=== PATIENT | female | born 1990 | race Two or more races ===

== ENCOUNTER 2017-06-18 04:00 | Inpatient (IN) | payer MEDICAID ==
[~2017-06-18] VITALS: Ht 154.9 cm; Wt 93.9 kg
[2017-06-18] VITALS (18 sets, daily range): BP systolic 101–136; BP diastolic 59–85
[2017-06-18 04:39] LABS: Basophils # (auto) 0.1 uL; Basophils % (auto) 0.5 % (0.0-2.0); Eosinophils # (auto) 0 uL; Eosinophils % (auto) 0.3 % (0.0-7.0); Hematocrit 35.6 % (36.0-46.0); Hemoglobin 11.7 g/dL (12.2-16.2); Lymphocytes # (auto) 2.4 uL; Lymphocytes % (auto) 20.4 % (10.0-50.0); Mean Corpuscular Hemoglobin 27.9 pg (28.0-32.0); Mean Corpuscular Hgb Conc. 32.9 g/dL (32.0-36.0); Mean Corpuscular Volume 84.9 fL (80.0-100.0); Monocytes # (auto) 0.6 uL; Monocytes % (auto) 5.3 % (0.0-12.0); Neutrophils # (auto) 8.5 uL; Neutrophils % (auto) 73.5 % (37.0-80.0); Nucleated Red Blood Cells % 0.1 %; Platelet Count (auto) 185 10^3/uL (140-450); Red Cell Distribution Width 15.2 % (11.8-14.3); White Blood Cell 11.6 10^3/uL (4.4-10.8)
[2017-06-18] MEDS: LACTATED RINGER'S 1,000 ML IV SCH ×4 (04:45→17:00)
[2017-06-18 04:55] LABS: INR 0.88 (0.9-1.15); Partial Thromboplastin Time 24.3 sec (22.64-33.71); Prothrombin Time 9.6 sec (9.37-12.3)
[2017-06-18 05:01] LABS: Alcohol, Urine < 3.0 mg/dL (0-5); Amphetamine Screen, Urine NEGATIVE (NEGATIVE); Barbiturate Scree,Urine NEGATIVE (NEGATIVE); Benzodiazephine Screen, Urine NEGATIVE (NEGATIVE); Cannabinoid Screen, Urine NEGATIVE (NEGATIVE); Cocaine Screen, Urine NEGATIVE (NEGATIVE); Opiate Scree,Urine NEGATIVE (NEGATIVE); Phencyclidine Screen, Urine NEGATIVE (NEGATIVE)
[2017-06-18 05:03] LABS: Urine Bacteria FEW /hpf (None Seen); Urine Blood Negative /uL (Negative); Urine Mucus FEW (None Seen); Urine Specific Gravity 1.027 (1.001-1.035); Urine WBC 3 /hpf (0 - 5)
[2017-06-18 05:04] LABS: Albumin 2.6 g/dL (3.4-5.0); BUN/Creatinine Ratio 22.9; Bilirubin, Total 0.4 mg/dL (0.2-1.0); Calcium 8.3 mg/dL (8.5-10.1); Potassium 3.6 mmol/L (3.5-5.1); Total Protein 6.9 g/dL (6.4-8.2)
[2017-06-18] MEDS ORDERED: MORPHINE SULF(PF) 0.5MG/ML 10ML VIAL ONE (06:59)
[2017-06-18] MEDS ORDERED: ePHEDrine SULFATE 50 MG/ML AMP ONE (07:00)
[2017-06-18] MEDS ORDERED: ceFAZolin 1GM VL ONE (07:04)
[2017-06-18] MEDS ORDERED: OXYTOCIN 10 UNIT/ML 10ML VIAL ONE (07:04)
[2017-06-18] MEDS ORDERED: PREN-96 PO (07:17)
[2017-06-18] MEDS ORDERED: METOCLOPRAMIDE HCL 5MG/ml INJ 2ml VIAL ONE (07:48)
[2017-06-18] MEDS ORDERED: LACT. RINGERS/OXYTOCIN 20UNITS 1,000 ML IV SCH (07:59)
[2017-06-18] MEDS ORDERED: HYDROmorphone HCL 2 MG/ML VL IV PRN (08:00)
[2017-06-18] MEDS ORDERED: diphenhdrAMINE HCL 50 MG/1 ML VL IV PRN (08:00)
[2017-06-18] MEDS ORDERED: ONDANSETRON HCL 4 MG/2 ML VIAL IV ONE (08:00)
[2017-06-18] MEDS ORDERED: KETOROLAC TROMETH 30 MG/ML 1ML VIAL IV PRN (08:00)
[2017-06-18] MEDS ORDERED: MORPHINE SULF INJ 2 MG/ML SYRINGE 1ML IV PRN (08:00)
[2017-06-18] MEDS ORDERED: ceFAZolin 1GM/50ML 50 ML IV SCH ×2 (08:00→10:00)
[2017-06-18] MEDS ORDERED: METOCLOPRAMIDE HCL 5MG/ml INJ 2ml VIAL IV ONE (08:00)
[2017-06-18] MEDS ORDERED: NALOXONE HCL 0.4 MG/ML VIAL IV PRN ×2 (08:00)
[2017-06-18] MEDS ORDERED: ONDANSETRON HCL 4 MG/2 ML VIAL IV PRN ×2 (08:00)
[2017-06-18] MEDS ORDERED: OXYTOCIN 10UNIT/ML 1ML VIAL ONE (08:04)
[2017-06-18] MEDS: KETOROLAC TROMETH 30 MG/ML 1ML VIAL IV PRN ×2 (11:37→20:56)
[2017-06-18] MEDS: ceFAZolin 1GM/50ML 50 ML IV SCH ×2 (13:56→22:12)
[2017-06-18 20:09] LABS: Basophils # (auto) 0 uL; Basophils % (auto) 0.1 % (0.0-2.0); Eosinophils # (auto) 0 uL; Eosinophils % (auto) 0.2 % (0.0-7.0); Hematocrit 29.1 % (36.0-46.0); Hemoglobin 9.7 g/dL (12.2-16.2); Lymphocytes # (auto) 1.5 uL; Lymphocytes % (auto) 16.3 % (10.0-50.0); Mean Corpuscular Hemoglobin 28.5 pg (28.0-32.0); Mean Corpuscular Hgb Conc. 33.3 g/dL (32.0-36.0); Mean Corpuscular Volume 85.6 fL (80.0-100.0); Monocytes # (auto) 0.5 uL; Monocytes % (auto) 6.1 % (0.0-12.0); Neutrophils # (auto) 6.9 uL; Neutrophils % (auto) 77.3 % (37.0-80.0); Platelet Count (auto) 156 10^3/uL (140-450); Red Cell Distribution Width 15.5 % (11.8-14.3); White Blood Cell 8.9 10^3/uL (4.4-10.8)
[2017-06-19 04:00] VITALS: BP 137/72
[2017-06-19] MEDS: KETOROLAC TROMETH 30 MG/ML 1ML VIAL IV PRN (05:18)
[2017-06-19] MEDS: ceFAZolin 1GM/50ML 50 ML IV SCH (06:00)
[2017-06-19] MEDS: LACTATED RINGER'S 1,000 ML IV SCH ×2 (06:56→16:56)
[2017-06-19] MEDS ORDERED: BISACODYL 10 MG RECT SUPP PR PRN (07:00)
[2017-06-19 07:40] LABS: Basophils # (auto) 0 uL; Basophils % (auto) 0.2 % (0.0-2.0); Eosinophils # (auto) 0 uL; Eosinophils % (auto) 0.5 % (0.0-7.0); Hemoglobin 8.8 g/dL (12.2-16.2); Lymphocytes # (auto) 1.4 uL; Lymphocytes % (auto) 17.1 % (10.0-50.0); Mean Corpuscular Hemoglobin 29.1 pg (28.0-32.0); Mean Corpuscular Hgb Conc. 33.8 g/dL (32.0-36.0); Monocytes # (auto) 0.5 uL; Monocytes % (auto) 5.8 % (0.0-12.0); Neutrophils # (auto) 6.1 uL; Neutrophils % (auto) 76.4 % (37.0-80.0); Nucleated Red Blood Cells % 0.1 %; Platelet Count (auto) 156 10^3/uL (140-450); Red Blood Cells 3.03 10^6/uL (4.0-5.20); Red Cell Distribution Width 15.4 % (11.8-14.3)
[2017-06-19 08:00] VITALS: BP 113/76
[2017-06-19] MEDS ORDERED: IBUPROFEN 800 MG TAB PO PRN (09:30)
[2017-06-19] MEDS ORDERED: HYDROcodone-ACET 5/325MG TAB PO PRN (09:30)
[2017-06-19] MEDS ORDERED: IBUPROFEN 800 MG TAB PO ONE (09:31)
[2017-06-19] MEDS: DOCUSATE SOD 100 MG CAP PO SCH ×2 (09:57→22:10)
[2017-06-19] MEDS: SIMETHICONE 80 MG CHEWABLE TABLET PO SCH ×4 (12:00→22:10)
[2017-06-19 12:19] VITALS: BP 128/83
[2017-06-19] MEDS: HYDROcodone-ACET 5/325MG TAB PO PRN ×2 (15:30→23:25)
[2017-06-19 15:56] VITALS: BP 132/87
[2017-06-19 19:00] VITALS: BP 135/77
[2017-06-19 23:30] VITALS: BP 133/88
[2017-06-20 03:30] VITALS: BP 132/72
[2017-06-20] MEDS: HYDROcodone-ACET 5/325MG TAB PO PRN (05:51)
[2017-06-20] MEDS ORDERED: SIMETHICONE 80 MG CHEWABLE TABLET PO SCH (06:00)
[2017-06-20 08:30] VITALS: BP 134/76
[2017-06-20 08:50] VITALS: BP 134/76
[2017-06-20] MEDS ORDERED: DOCUSATE SOD 100 MG CAP PO SCH (10:00)
== END 2017-06-20 08:50 | disposition home or self-care (01) | DRG 540 ==
LOC: LDRP 04:00
PROVIDERS: ADMIT Obstetrics & Gynecology; ATTEND Obstetrics & Gynecology
PROC: 10D00Z1 Extraction of Products of Conception, Low, Open Approach (ICD-10-PCS; principal; 2017-06-18 07:14)
DX: O34.211 Maternal care for low transverse scar from previous cesarean delivery (principal); E66.9 Obesity, unspecified; Z37.0 Single live birth; Z3A.39 39 weeks gestation of pregnancy; Z53.29 Procedure and treatment not carried out because of patient's decision for other reasons; O99.214 Obesity complicating childbirth; Z68.39 Body mass index [BMI] 39.0-39.9, adult; O99.02 Anemia complicating childbirth; D64.9 Anemia, unspecified
CPT/HCPCS: 36415; 51702; 59025; 80053; 80307; 81001; 85025; 85610; 85730; 86850; 86900; 86901; 94762; 96365; 96366; 96374; 96375; J0690; J1885; J2590

== ENCOUNTER → 2019-10-07 | Emergency (ER) | payer SELFPAY ==
[~2019-10-07] VITALS: Ht 154.9 cm; Wt 88.5 kg
[~2019-10-07] MED LIST: PREN-96 PO
[2019-10-07 16:44] LABS: Urine Bacteria FEW /hpf (None Seen); Urine Blood 1+ /uL (Negative); Urine Mucus FEW (None Seen); Urine Specific Gravity 1.007 (1.001-1.035); Urine WBC 2 /hpf (0 - 5)
[2019-10-07 16:45] VITALS: BP 136/79
[2019-10-07 17:12] LABS: Basophils # (auto) 0 10 ^3/uL (0-0.2); Basophils % (auto) 0.2 % (0.0-2.0); Eosinophils # (auto) 0 10 ^3/uL (0-0.8); Eosinophils % (auto) 0.2 % (0.0-7.0); Hematocrit 40.6 % (36.0-46.0); Hemoglobin 13.6 g/dL (12.2-16.2); Lymphocytes # (auto) 1.9 10 ^3/uL (0.4-5.4); Lymphocytes % (auto) 19.4 % (10.0-50.0); Mean Corpuscular Hemoglobin 28.7 pg (28.0-32.0); Mean Corpuscular Hgb Conc. 33.4 g/dL (32.0-36.0); Monocytes # (auto) 0.4 10 ^3/uL (0-1.3); Monocytes % (auto) 4.1 % (0.0-12.0); Neutrophils # (auto) 7.5 10 ^3/uL (1.6-8.6); Neutrophils % (auto) 76.1 % (37.0-80.0); Nucleated Red Blood Cells % 0.1 %; Platelet Count (auto) 253 10^3/uL (140-450); Red Blood Cells 4.72 10^6/uL (4.0-5.20); White Blood Cell 9.8 10^3/uL (4.4-10.8)
== END | disposition home or self-care (01) ==
LOC: ER 16:10
DX: O20.0 Threatened abortion (principal)
CPT/HCPCS: 36415; 76801; 81001; 84702; 85025

== ENCOUNTER → 2019-10-19 | Emergency (ER) | payer OTHER ==
[~2019-10-19] VITALS: Ht 154.9 cm; Wt 88.5 kg
[2019-10-19 19:35] VITALS: BP 145/94
== END | disposition home or self-care (01) ==
LOC: ER 19:20
DX: O20.0 Threatened abortion (principal); Z3A.01 Less than 8 weeks gestation of pregnancy
CPT/HCPCS: 76801

== ENCOUNTER 2021-06-26 21:37 | Emergency (ER) | payer OTHER ==
[~2021-06-26] VITALS: Ht 152.4 cm; Wt 77.1 kg
[2021-06-26 21:39] VITALS: BP 141/98
[2021-06-26] MEDS ORDERED: ALPRAZolam 0.5 MG TAB PO ONE (22:15)
[2021-06-26] MEDS ORDERED: AZITHROMYCIN 250 MG TAB PO ONE (22:15)
[2021-06-27] MEDS ORDERED: ALPR0.5T PO (19:45)
== END 2021-06-27 00:54 | disposition home or self-care (01) ==
LOC: ER 21:43
DX: U07.1 COVID-19 (principal); Z79.899 Other long term (current) drug therapy